=== PATIENT | male | born 1965 | race Hispanic/Latino ===

== ENCOUNTER 2018-03-10 22:34 | Emergency (ER) | payer OTHER ==
[2018-03-10 22:47] VITALS: RESP 17
[2018-03-10] MEDS ORDERED: Sodium Chloride 0.9% 1,000 ML IV STA (23:28)
[2018-03-10 23:42] LABS: BASO % 0.1 % (0.0-2.0); EOS % 0.1 % (0.0-4.0); LYMPH # 0.3 K/uL (1.0-4.3); LYMPH % 7.1 % (20.0-40.0); MEAN CELL VOLUME 87.7 fl (80.0-94.0); MEAN CORPUSCULAR HEMOGLOBIN 29.4 pg (27.0-31.0); MEAN CORPUSCULAR HGB CONC 33.5 g/dL (33.0-37.0); MEAN PLATELET VOLUME 9.9 fl (7.2-11.7); MONO # 0.2 K/uL (0.0-0.8); MONO % 5.3 % (0.0-10.0); NEUT # 3.8 K/uL (1.8-7.0); NEUT % 87.4 % (50.0-75.0); NRBC % 0.1 % (0.0-0.0); PLATELET COUNT 56 K/uL (130-400); RBC 4.42 Mil/uL (4.40-5.90); WHITE BLOOD COUNT 4.3 K/uL (4.8-10.8)
[2018-03-10 23:54] LABS: URINE BILIRUBIN NEGATIVE (NEGATIVE); URINE BLOOD LARGE (NEGATIVE); URINE CLARITY SLIGHTY-CLOUDY (Clear); URINE COLOR YELLOW (YELLOW); URINE GLUCOSE (UA) 50 mg/dL (Normal); URINE LEUKOCYTE ESTERASE NEG Leu/uL (Negative); URINE PROTEIN 30 mg/dL (NEGATIVE); URINE UROBILINOGEN 0.2-1.0 mg/dL (0.2-1.0)
[2018-03-11 00:09] LABS: ALB/GLOB RATIO 1.2 (1.0-2.1); ALBUMIN 3.9 g/dL (3.5-5.0); ALT/SGPT 41 U/L (21-72); AST/SGOT 39 U/L (17-59); BLOOD UREA NITROGEN 26 mg/dl (9-20); CALCIUM 9.2 mg/dL (8.4-10.2); GFR AFRICAN-AMERICAN > 60; GFR NON-AFRICAN AMERICAN > 60
[2018-03-11 01:06] LABS: ANISOCYTOSIS SLIGHT; EOSINOPHIL 1 % (0-7); LYMPHOCYTE 7 % (20-50); MONOCYTE 3 % (0-10); NEUTROPHIL 89 % (42-75); PLATELET ESTIMATE DECREASED (NORMAL); TOTAL CELLS COUNTED 100
--- NOTE | 2018-03-11 01:13 | CT ---
EXAM: CT Abdomen and Pelvis Without Intravenous Contrast CLINICAL HISTORY: 52 years old, male; Pain; Abdominal pain; Flank; Left; Prior surgery; Surgery date: 6+ months; Surgery type: Gall bladder removed; Additional info: Left flank pain, hematuria TECHNIQUE: Axial computed tomography images of the abdomen and pelvis without intravenous contrast. All CT scans at this facility use one or more dose reduction techniques, viz.: automated exposure control; ma/kV adjustment per patient size (including targeted exams where dose is matched to indication; i.e. head); or iterative reconstruction technique. Coronal and sagittal reformatted images were created and reviewed. COMPARISON: No relevant prior studies available. FINDINGS: Limitations: Lack of intravenous contrast. Motion artifact - mild. Lung bases: Minimal atelectasis/scarring. ABDOMEN: Liver: Lobulated contour. Gallbladder and bile ducts: Cholecystectomy. No significant ductal dilation. Pancreas: Unremarkable. No ductal dilation. Spleen: Mild to moderately enlarged. Adrenals: No mass. Kidneys and ureters: Mild stranding about LEFT kidney. Few peripelvic cysts. No renal calculi. Moderate pelvocaliectasis of LEFT kidney. Mild to moderately dilated LEFT ureter. 0.7 x 0.5 x 0.4 cm calculus within LEFT distal ureter. Stomach and bowel: Probable underdistention of LEFT colon. No definite mural thickening. No obstruction. PELVIS: Appendix: Normal caliber. No inflammation. Bladder: Unremarkable. No stones. Reproductive: Mildly enlarged prostate. ABDOMEN and PELVIS: Intraperitoneal space: No significant fluid collection. No free air. Bones/joints: Degenerative changes of spine. No acute fracture. Soft tissues: Small umbilical hernia containing fat. Vasculature: Varices within abdomen and pelvis. Minimal atherosclerotic disease of iliac arteries. No aneurysm. Lymph nodes: No pathologically enlarged lymph nodes. IMPRESSION: 1. LEFT distal ureteral calculus with [id number] hydroureteronephrosis. 2. Cirrhosis with portal hypertension. 3. Prostate enlargement. Followup as clinically warranted. 4. Incidental/non-acute findings are described above.
--- NOTE | 2018-03-11 01:48 | ED PDOC ---
HPI: Abdomen Time Seen by Provider: 03/10/18 22:38 Chief Complaint (Nursing): Abdominal Pain Chief Complaint (Provider): Left flank pain, intermittent x 2 days History Per: Patient History/Exam Limitations: no limitations Onset/Duration Of Symptoms: Days Location Of Pain/Discomfort: Other Quality Of Discomfort: Sharp Additional Complaint(s): 52 yo male with history of prostatitis presents with left flank pain radiating to the left groin for 2 days. [place] and [place]. Pt states he went to ER there and has labs completed. Pt started feeling better and was sent home. Pt states he was told at one point he had stones in his kidneys but they were small and in a location that should not cause problems. Pt reports no pain from kidney stones in the past. Pt also reports seeing blood in the urine a few days ago but states that happens from time to time and his urologist is aware. Past Medical History Reviewed: Historical Data, Nursing Documentation, Vital Signs Vital Signs: Last Vital Signs Temp 97.5 F L 03/10/18 22:43 Pulse 79 03/10/18 22:43 Resp 17 03/10/18 22:43 BP 131/56 L 03/10/18 22:43 Pulse Ox 95 03/11/18 01:52 - Medical History Other PMH: Prostititis - Surgical History Surgical History: No Surg Hx - Family History Family History: States: No Known Family Hx - Living Arrangements Living Arrangements: With Family - Social History Current smoker - smoking cessation education provided: No - Home Medications Home Medications: Ambulatory Orders Medication Instructions Recorded Ciprofloxacin [Cipro] 500 mg PO BID #10 tab 03/11/18 Tamsulosin [Flomax] 0.4 mg PO DAILY #10 cap 03/11/18 traMADol [Ultram] 50 mg PO Q6H PRN #15 tab 03/11/18 - Allergies Allergies/Adverse Reactions: Allergies Allergy/AdvReac Type Severity Reaction Status Date / Time No Known Allergies Allergy Verified 03/10/18 22:49 Review of Systems ROS Statement: Except As Marked, All Systems Reviewed And Found Negative Constitutional: Negative for: Fever, Chills Gastrointestinal: Positive for: Other (Left flank pain) Genitourinary Male: Positive for: Hematuria Physical Exam - Reviewed Nursing Documentation Reviewed: Yes Vital Signs Reviewed: Yes - Physical Exam Appears: Positive for: Well, Non-toxic, No Acute Distress Head Exam: Positive for: ATRAUMATIC, NORMAL INSPECTION, NORMOCEPHALIC Skin: Positive for: Normal Color, Warm, DRY Eye Exam: Positive for: Normal appearance ENT: Positive for: Normal ENT Inspection Neck: Positive for: Normal, Painless ROM Cardiovascular/Chest: Positive for: Regular Rate, Rhythm Respiratory: Positive for: Normal Breath Sounds. Negative for: Accessory Muscle Use, Respiratory Distress Gastrointestinal/Abdominal: Positive for: Normal Exam, Soft Back: Positive for: Normal Inspection Extremity: Positive for: Normal ROM Neurologic/Psych: Positive for: Alert, Oriented - Laboratory Results Result Diagrams: 03/10/18 23:27 03/10/18 23:29 - ECG O2 Sat by Pulse Oximetry: 95 Pulse Ox Interpretation: Normal Medical Decision Making Medical Decision Making: Hematuria with left flank pain - CT ordered. CT showing kidney stone in the left distal ureter with mild to moderate hydro Disposition - Clinical Impression Clinical Impression: Kidney stone on left side - Patient ED Disposition Is Patient to be Admitted: No Counseled Patient/Family Regarding: Diagnosis, Need For Followup, Rx Given - Disposition Disposition: Routine/Home Disposition Time: 02:34 Condition: STABLE Additional Instructions: Please follow-up with urologist. Prescriptions: Ciprofloxacin [Cipro] 500 mg PO BID #10 tab Tamsulosin [Flomax] 0.4 mg PO DAILY #10 cap traMADol [Ultram] 50 mg PO Q6H PRN #15 tab PRN Reason: Pain Instructions: Kidney Stones in Adults Forms: [facility] (Turkmen)
[2018-03-11 03:05] VITALS: BP 128/75; PULSE 77; TEMP 97.9; O2SAT 99
== END 2018-03-11 02:58 | disposition home or self-care (01) ==
LOC: H.ER 22:34
DX: N20.0 Calculus of kidney (principal); N41.9 Inflammatory disease of prostate, unspecified
CPT/HCPCS: 74176; 80053; 81003; 85025; 87086; 96361; 96374; 99284; J1885; J7030